=== PATIENT | male | born 1995 | race Caucasian/White ===

== ENCOUNTER 2018-07-07 13:10 | Day surgery (SDC) | payer BC ==
[~2018-07-07] VITALS: Ht 180.3 cm; Wt 68.0 kg
[~2018-07-07 13:10] MED LIST: BUPIVACAINE/PF 0.5% ONE; EPINEPHRINE 1 MG/ML, 1ML ONE; LIDOCAINE 1%-EPI 1:100K, 30ML ONE; No meds per pt.; PROPOFOL 10 MG/ML, 20ML ONE; ROPIvacaine/PF 0.5%, 30 ML ONE; VITAMIN D PO
[2018-07-07 13:22] VITALS: BP 107/70
[2018-07-07] MEDS ORDERED: LACTATED RINGERS 1,000 ML IV SCH (13:24)
[2018-07-07] MEDS ORDERED: GABAPENTIN 300 MG CAPSULE PO ONE (13:30)
[2018-07-07] MEDS ORDERED: ACETAMINOPHEN 500 MG TABLET PO ONE (13:30)
[2018-07-07] MEDS ORDERED: OXYcodone IR 5MG TABLET PO ONE (13:30)
[2018-07-07] MEDS ORDERED: CEFAZOLIN 1,000 MG ONE (13:51)
[2018-07-07] MEDS ORDERED: DEXAMETHASONE 4 MG/ML, 1ML ONE ×2 (13:56)
[2018-07-07] MEDS ORDERED: KETOROLAC 30 MG/1 ML ONE (13:57)
[2018-07-07] MEDS ORDERED: ONDANSETRON 2MG/ML, 2ML ONE (13:57)
[2018-07-07] MEDS ORDERED: FENTANYL PF 100 MCG/2ML IV PRN (14:00)
[2018-07-07] MEDS ORDERED: PROMETHAZINE 25 MG/ML, 1ML IV PRN (14:00)
[2018-07-07] MEDS ORDERED: OXYcodone 5 MG/5 ML ORAL.SOL UDC PO PRN (14:00)
[2018-07-07] MEDS ORDERED: FENTANYL PF 100 MCG/2ML ONE ×2 (14:04→15:18)
[2018-07-07] MEDS ORDERED: BUPIVACAINE/PF-EPI 0.5% 1:200K INFIL ONE (14:12)
[2018-07-07] MEDS ORDERED: LIDOCAINE 1%-EPI 1:100K, 30ML INFIL ONE (14:12)
[2018-07-07] MEDS ORDERED: OXYcodone 5 MG/5 ML ORAL.SOL UDC ONE (15:18)
== END 2018-07-07 17:50 | disposition home or self-care (01) ==
LOC: OUT 13:10
PROVIDERS: ATTEND Orthopaedic Surgery
DX: S83.094A Other dislocation of right patella, initial encounter (principal); M94.261 Chondromalacia, right knee; M23.51 Chronic instability of knee, right knee; M23.41 Loose body in knee, right knee; M23.601 Other spontaneous disruption of unspecified ligament of right knee; Z72.89 Other problems related to lifestyle; Z98.890 Other specified postprocedural states; Z79.899 Other long term (current) drug therapy; Z91.011 Allergy to milk products; X58.XXXA Exposure to other specified factors, initial encounter; Y93.89 Activity, other specified; Y92.89 Other specified places as the place of occurrence of the external cause; Y99.8 Other external cause status
CPT/HCPCS: 27427; 73560; 76000; C1713; C1762; J0171; J0690; J1100; J1885; J2405; J2704; J2795; J3010; J3490; J7120